=== PATIENT | female | born 1955 | race Two or more races ===

== ENCOUNTER 2023-06-04 12:12 | Inpatient (IN) | payer OTHER ==
[~2023-06-04] VITALS: Ht 157.5 cm; Wt 73.0 kg
[2023-06-04] MEDS ORDERED: CALC667T2 PO (12:46)
[2023-06-04] MEDS ORDERED: HYDR-4077 PO (12:46)
[2023-06-04] MEDS ORDERED: FERR-56 PO (12:46)
[2023-06-04] MEDS ORDERED: PANT40TA49 PO (12:46)
[2023-06-04] MEDS ORDERED: ROSU10TA2 PO (12:46)
[2023-06-04] MEDS ORDERED: LABE100T5 PO (12:46)
[2023-06-04 13:10] LABS: BASOPHILS # (AUTO) 0.1 K/UL (0.0-0.2); BASOPHILS % (AUTO) 1.4 % (0.0-2.0); EOSINOPHILS # (AUTO) 0.1 K/uL (0.0-0.7); EOSINOPHILS % (AUTO) 3.2 % (0.0-7.0); HEMOGLOBIN 11.5 g/dL (10.9-14.3); LYMPHOCYTES % (AUTO) 23.7 % (20.5-51.5); MEAN CORPUSCULAR HEMOGLOBIN 28.6 uug (24.7-32.8); MEAN CORPUSCULAR HGB CONC 34 g/dL (32.3-35.6); MEAN CORPUSCULAR VOLUME 84.5 fL (75.5-95.3); MONOCYTES # (AUTO) 0.4 K/uL (0.1-1.30); MONOCYTES % (AUTO) 9.1 % (0.0-11.0); NEUTROPHILS # (AUTO) 2.7 K/uL (1.8-8.9); NEUTROPHILS % (AUTO) 62.6 % (38.5-71.5); PLATELET COUNT (AUTO) 285 K/uL (179-408); RED BLOOD CELL COUNT(AUTO) 4.02 MIL/uL (3.63-4.92); RED CELL DISTRIBUTION WIDTH 15.5 % (12.3-17.7); WHITE BLOOD COUNT (AUTO) 4.4 K/uL (3.8-11.8)
[2023-06-04 13:23] LABS: CALCIUM 8.3 mg/dL (8.5-10.1); CARBON DIOXIDE 25 mmol/L (21-32); CHLORIDE 93 mmol/L (98-107); GLUCOSE 360 mg/dL (74-106); POTASSIUM 4.5 mmol/L (3.5-5.1); SODIUM SERUM 129 mmol/L (136-145); UREA NITROGEN, BLOOD 34 mg/dL (7-18)
[2023-06-04 13:31] LABS: ALANINE AMINOTRANSFERASE 575 U/L (14-59); ALBUMIN 3.4 g/dL (3.4-5.0); ALKALINE PHOSPHATASE 314 U/L (50-136); ASPARTATE AMINOTRANSFERASE 592 U/L (15-37); BILIRUBIN,DIRECT 0.2 mg/dL (0.0-0.2); BILIRUBIN,TOTAL 0.6 mg/dL (0.2-1.0); TOTAL PROTEIN, SERUM 7.3 g/dL (6.4-8.2)
[2023-06-04 13:36] LABS: DIFFERENTIAL COMMENT 1; THYROID STIMULATING HORMONE 0.745 mIU/mL (0.358-3.740)
[2023-06-04] MEDS ORDERED: IV NS 1000 ML 1,000 ML IV ONE (14:00)
[2023-06-04 14:45] LABS: *BILIRUBIN,URIN NEGATIVE (NEGATIVE); *BLOOD, URINE NEGATIVE (NEGATIVE); *CLARITY,URINE CLEAR (CLEAR); *COLOR,URINE YELLOW (YELLOW); *KETONES,URINE NEGATIVE (NEGATIVE); *PROTEIN,URINE 2+ (NEGATIVE); *UROBILINOGEN,URINE 0.2 E.U./dl (NORMAL); LEUKOCYTE ESTERASE ,URINE TRACE (NEGATIVE); NITRITE, URINE NEGATIVE (NEGATIVE); PH,URINE 7.5 (5.0-8.0)
[2023-06-04 14:47] LABS: UGLUCOSE 2+ (NEGATIVE)
[2023-06-04 15:00] LABS: *AMPHETAMINE, URINE NEGATIVE (NEGATIVE); *BARBITURATE, URINE NEGATIVE (NEGATIVE); *BENZODIAZEPINE, URINE NEGATIVE (NEGATIVE); *CANNABINOID, URINE NEGATIVE (NEGATIVE); *COCCAINE, URINE NEGATIVE (NEGATIVE); *OPIATE, URINE NEGATIVE (NEGATIVE); *PHENCYCLIDINE SCREEN,URINE NEGATIVE (NEGATIVE); FENTANYL, URINE NEGATIVE (NEGATIVE)
[2023-06-04 15:06] LABS: BACTERIA,URINE FEW /HPF (NONE SEEN); RBC,URINE NONE SEEN /HPF (0-3)
[2023-06-04 15:07] LABS: SQUAMOUS EPITHELIAL CELL,UR FEW /HPF (NONE SEEN)
[2023-06-04] MEDS ORDERED: INSULIN REGULAR, HUMAN 300 UNIT/3 ML VIAL IV ONE (16:15)
[2023-06-04] MEDS ORDERED: INSULIN REGULAR, HUMAN 300 UNIT/3 ML VIAL ONE (16:29)
[2023-06-04] MEDS ORDERED: ONDANSETRON 4 MG/2 ML VIAL IV PRN (17:30)
[2023-06-04] MEDS ORDERED: MAGNESIUM HYDROXIDE 30 ML LIQUID UDC PO PRN (17:30)
[2023-06-04] MEDS ORDERED: REMEDY ESSENTIAL ZINC PASTE 113 GM TP PRN (17:30)
[2023-06-04 21:00] VITALS: BP 151/73; TEMP 97.7; O2SAT 99
[2023-06-04] MEDS: ACETAMINOPHEN 325 MG TABLET PO PRN (21:55)
[2023-06-04] MEDS: LABETALOL HCL 100 MG TABLET PO SCH (21:56)
[2023-06-04] MEDS: IV NS 1000 ML 1,000 ML IV PRN (22:25)
[2023-06-05 04:34] VITALS: BP 138/68; TEMP 97.8; O2SAT 95
[2023-06-05] MEDS: PANTOPRAZOLE SODIUM 40 MG TABLET.DR PO SCH (06:30)
[2023-06-05 06:32] LABS: BASOPHILS # (AUTO) 0.1 K/UL (0.0-0.2); EOSINOPHILS # (AUTO) 0.3 K/uL (0.0-0.7); EOSINOPHILS % (AUTO) 6.1 % (0.0-7.0); HEMATOCRIT 33.4 % (31.2-41.9); HEMOGLOBIN 11.3 g/dL (10.9-14.3); LYMPHOCYTES % (AUTO) 36.1 % (20.5-51.5); MEAN CORPUSCULAR HEMOGLOBIN 28.6 uug (24.7-32.8); MEAN CORPUSCULAR HGB CONC 34 g/dL (32.3-35.6); MONOCYTES # (AUTO) 0.5 K/uL (0.1-1.30); MONOCYTES % (AUTO) 9.4 % (0.0-11.0); NEUTROPHILS # (AUTO) 2.7 K/uL (1.8-8.9); NEUTROPHILS % (AUTO) 47.4 % (38.5-71.5); PLATELET COUNT (AUTO) 284 K/uL (179-408); RED BLOOD CELL COUNT(AUTO) 3.93 MIL/uL (3.63-4.92); RED CELL DISTRIBUTION WIDTH 15.8 % (12.3-17.7); WHITE BLOOD COUNT (AUTO) 5.7 K/uL (3.8-11.8)
[2023-06-05 06:49] LABS: DIFFERENTIAL COMMENT 1
[2023-06-05 06:58] LABS: ALBUMIN 3.2 g/dL (3.4-5.0); BILIRUBIN,DIRECT 0.1 mg/dL (0.0-0.2); BILIRUBIN,TOTAL 0.4 mg/dL (0.2-1.0); CALCIUM 7.8 mg/dL (8.5-10.1); CREATININE 1.9 mg/dL (0.6-1.3); MAGNESIUM 2.2 mg/dL (1.8-2.4); PHOSPHOROUS 5.5 mg/dL (2.5-4.9); POTASSIUM 3.4 mmol/L (3.5-5.1)
[2023-06-05] MEDS: CALCIUM ACETATE 667 MG CAP/TAB PO SCH ×3 (09:07→17:26)
[2023-06-05] MEDS: hydrALAZINE HCL 50 MG TABLET PO SCH ×3 (09:25→16:49)
[2023-06-05] MEDS: LABETALOL HCL 100 MG TABLET PO SCH (09:26)
[2023-06-05] MEDS ORDERED: CLONIDINE HCL 0.1 MG TABLET PO PRN (10:00)
[2023-06-05] MEDS ORDERED: NIFEdipine XL 30 MG TABSR PO SCH (10:00)
[2023-06-05] MEDS ORDERED: CALCIUM GLUCONATE IV 2 GM in IV NORMAL SALINE 100 ML IV ONE (11:00)
[2023-06-05] MEDS ORDERED: CALCITRIOL 0.25 MCG CAPSULE PO SCH (11:00)
[2023-06-05] MEDS ORDERED: POTASSIUM CHLORIDE 10 MEQ TAB.PRT.SR PO ONE (11:15)
[2023-06-05 11:18] VITALS: BP 150/59; TEMP 97.7; O2SAT 94
[2023-06-05] MEDS ORDERED: INSU3INS6 SQ (14:46)
[2023-06-05] MEDS ORDERED: LEVO137T2 PO (14:46)
[2023-06-05 15:26] VITALS: BP 154/74; TEMP 97.6; O2SAT 100
[2023-06-05] MEDS: BLOOD SUGAR DIAGNOSTIC 1 EACH STRIP VI SCH ×2 (16:33→20:49)
[2023-06-05] MEDS: INSULIN REGULAR, HUMAN 300 UNIT/3 ML VIAL SQ PRN ×2 (16:47→20:52)
[2023-06-05] MEDS: IV NS 1000 ML 1,000 ML IV PRN (17:16)
[2023-06-05 20:00] VITALS: BP 170/54; TEMP 98.1; O2SAT 98
[2023-06-05 21:30] LABS: *BILIRUBIN,URIN NEGATIVE (NEGATIVE); *BLOOD, URINE NEGATIVE (NEGATIVE); *CLARITY,URINE CLEAR (CLEAR); *COLOR,URINE YELLOW (YELLOW); *KETONES,URINE NEGATIVE (NEGATIVE); *PROTEIN,URINE TRACE (NEGATIVE); *UROBILINOGEN,URINE 0.2 E.U./dl (NORMAL); LEUKOCYTE ESTERASE ,URINE NEGATIVE (NEGATIVE); NITRITE, URINE NEGATIVE (NEGATIVE)
[2023-06-05 21:31] LABS: UGLUCOSE 2+ (NEGATIVE)
[2023-06-05 21:35] LABS: *CREATININE,URINE < 13.0 mg/dL (30-125); *SODIUM RNDM,URINE 84 mmol/L (40-220); *URINE TOTAL PROTEIN RANDOM 21.4 mg/dL (<150/24HR)
[2023-06-06 04:36] VITALS: BP 146/63; TEMP 97.8; O2SAT 99
[2023-06-06] MEDS: PANTOPRAZOLE SODIUM 40 MG TABLET.DR PO SCH (06:11)
[2023-06-06] MEDS: LEVOTHYROXINE SODIUM 137 MCG TABLET PO SCH (06:12)
[2023-06-06] MEDS: IV NS 1000 ML 1,000 ML IV PRN ×2 (06:53→22:49)
[2023-06-06] MEDS: BLOOD SUGAR DIAGNOSTIC 1 EACH STRIP VI SCH ×4 (06:54→20:11)
[2023-06-06 07:16] LABS: BASOPHILS # (AUTO) 0.1 K/UL (0.0-0.2); BASOPHILS % (AUTO) 0.9 % (0.0-2.0); EOSINOPHILS # (AUTO) 0.2 K/uL (0.0-0.7); EOSINOPHILS % (AUTO) 3.1 % (0.0-7.0); HEMATOCRIT 32.1 % (31.2-41.9); HEMOGLOBIN 10.9 g/dL (10.9-14.3); LYMPHOCYTES # (AUTO) 1.4 K/uL (0.8-4.8); LYMPHOCYTES % (AUTO) 19.9 % (20.5-51.5); MEAN CORPUSCULAR HEMOGLOBIN 28.7 uug (24.7-32.8); MEAN CORPUSCULAR HGB CONC 34 g/dL (32.3-35.6); MEAN CORPUSCULAR VOLUME 84.7 fL (75.5-95.3); MONOCYTES # (AUTO) 0.5 K/uL (0.1-1.30); MONOCYTES % (AUTO) 7.3 % (0.0-11.0); NEUTROPHILS # (AUTO) 4.9 K/uL (1.8-8.9); NEUTROPHILS % (AUTO) 68.8 % (38.5-71.5); PLATELET COUNT (AUTO) 279 K/uL (179-408); RED BLOOD CELL COUNT(AUTO) 3.79 MIL/uL (3.63-4.92); RED CELL DISTRIBUTION WIDTH 15.3 % (12.3-17.7); WHITE BLOOD COUNT (AUTO) 7.1 K/uL (3.8-11.8)
[2023-06-06 07:17] LABS: DIFFERENTIAL COMMENT 1
[2023-06-06 07:50] LABS: ALBUMIN 3.3 g/dL (3.4-5.0); BILIRUBIN,TOTAL 0.5 mg/dL (0.2-1.0); CALCIUM 7.9 mg/dL (8.5-10.1); CREATININE 1.7 mg/dL (0.6-1.3); MAGNESIUM 1.9 mg/dL (1.8-2.4); PHOSPHOROUS 5.3 mg/dL (2.5-4.9); POTASSIUM 3.5 mmol/L (3.5-5.1)
[2023-06-06] MEDS: CALCIUM ACETATE 667 MG CAP/TAB PO SCH ×3 (08:53→17:15)
[2023-06-06] MEDS: hydrALAZINE HCL 50 MG TABLET PO SCH ×3 (09:26→16:44)
[2023-06-06 11:15] VITALS: BP 139/64; TEMP 98.4; O2SAT 95
[2023-06-06] MEDS: INSULIN REGULAR, HUMAN 300 UNIT/3 ML VIAL SQ PRN ×3 (12:33→20:13)
[2023-06-06 18:26] VITALS: BP 152/72; TEMP 98.2; O2SAT 96
[2023-06-06 20:00] VITALS: BP 131/72; TEMP 98.1; O2SAT 100
[2023-06-06] MEDS: ACETAMINOPHEN 325 MG TABLET PO PRN (20:14)
[2023-06-06] MEDS: DEXTROSE 50% 50 ML DISP.SYRIN IV PRN (23:41)
[2023-06-07] MEDS: DEXTROSE 50% 50 ML DISP.SYRIN IV PRN ×2 (01:30→05:13)
[2023-06-07 03:06] LABS: HEPATITIS B CORE AB, IgM Negative (Negative); HEPATITIS B SURFACE AG Negative (Negative); HEPATITIS C VIRUS ANTIBODY Non Reactive (Non Reactive)
[2023-06-07 05:42] VITALS: BP 155/79; TEMP 97.6; O2SAT 99
[2023-06-07 06:06] LABS: PTH, INTACT 3 pg/mL (15-65)
[2023-06-07] MEDS: LEVOTHYROXINE SODIUM 137 MCG TABLET PO SCH (06:26)
[2023-06-07] MEDS: PANTOPRAZOLE SODIUM 40 MG TABLET.DR PO SCH (06:26)
[2023-06-07 06:58] LABS: BASOPHILS # (AUTO) 0.1 K/UL (0.0-0.2); EOSINOPHILS # (AUTO) 0.2 K/uL (0.0-0.7); EOSINOPHILS % (AUTO) 2.9 % (0.0-7.0); HEMATOCRIT 33.9 % (31.2-41.9); HEMOGLOBIN 11.6 g/dL (10.9-14.3); LYMPHOCYTES # (AUTO) 2.1 K/uL (0.8-4.8); LYMPHOCYTES % (AUTO) 31.3 % (20.5-51.5); MEAN CORPUSCULAR HGB CONC 34 g/dL (32.3-35.6); MONOCYTES # (AUTO) 0.6 K/uL (0.1-1.30); MONOCYTES % (AUTO) 8.3 % (0.0-11.0); NEUTROPHILS # (AUTO) 3.8 K/uL (1.8-8.9); NEUTROPHILS % (AUTO) 56.5 % (38.5-71.5); PLATELET COUNT (AUTO) 284 K/uL (179-408); RED BLOOD CELL COUNT(AUTO) 3.99 MIL/uL (3.63-4.92); RED CELL DISTRIBUTION WIDTH 15.2 % (12.3-17.7); WHITE BLOOD COUNT (AUTO) 6.7 K/uL (3.8-11.8)
[2023-06-07] MEDS: BLOOD SUGAR DIAGNOSTIC 1 EACH STRIP VI SCH ×3 (07:22→16:38)
[2023-06-07 07:23] LABS: DIFFERENTIAL COMMENT 1
[2023-06-07 07:44] LABS: ALBUMIN 3.3 g/dL (3.4-5.0); BILIRUBIN,DIRECT 0.2 mg/dL (0.0-0.2); BILIRUBIN,TOTAL 0.5 mg/dL (0.2-1.0); CALCIUM 7.4 mg/dL (8.5-10.1); CREATININE 1.6 mg/dL (0.6-1.3); MAGNESIUM 1.6 mg/dL (1.8-2.4); PHOSPHOROUS 4.8 mg/dL (2.5-4.9); POTASSIUM 3.3 mmol/L (3.5-5.1); TOTAL PROTEIN, SERUM 7.1 g/dL (6.4-8.2)
[2023-06-07] MEDS: CALCIUM ACETATE 667 MG CAP/TAB PO SCH ×3 (08:34→17:30)
[2023-06-07] MEDS: hydrALAZINE HCL 50 MG TABLET PO SCH ×3 (08:35→17:30)
[2023-06-07] MEDS: INSULIN REGULAR, HUMAN 300 UNIT/3 ML VIAL SQ PRN ×3 (08:39→16:40)
[2023-06-07] MEDS ORDERED: POTASSIUM CHLORIDE 10 MEQ TAB.PRT.SR PO ONE (11:00)
[2023-06-07] MEDS ORDERED: MAGNESIUM SULFATE/D5W 100 ML IV SCH (11:00)
[2023-06-07 11:01] VITALS: BP 156/80; TEMP 98.4; O2SAT 97
[2023-06-07 12:06] LABS: A/G RATIO 1.1 (0.7-1.7); ALBUMIN 3.3 g/dL (2.9-4.4); ALPHA-1-GLOBULIN 0.2 g/dL (0.0-0.4); ALPHA-2-GLOBULIN 0.8 g/dL (0.4-1.0); BETA GLOBULIN 1.2 g/dL (0.7-1.3); GAMMA GLOBULIN 0.8 g/dL (0.4-1.8); GLOBULIN, TOTAL 3.1 g/dL (2.2-3.9); M-SPIKE Not Observed g/dL (Not Observed)
[2023-06-07] MEDS ORDERED: CEFTRIAXONE 1 G in IV DEXTROSE 5% 50 ML IV ONE (13:00)
[2023-06-07] MEDS ORDERED: POTASSIUM CHLORIDE 20 MEQ TAB.PRT.SR PO ONE (13:00)
[2023-06-07 14:08] VITALS: BP 147/70; TEMP 98; O2SAT 100
[2023-06-07 15:01] VITALS: BP 147/70; TEMP 98.4; O2SAT 99
[2023-06-07 17:30] VITALS: BP 145/85
== END 2023-06-07 17:50 | disposition home or self-care (01) | DRG 469 ==
LOC: ER 12:23 → TELE3 20:21 → MEDSURG3 20:57
PROVIDERS: ADMIT Internal Medicine; ATTEND Internal Medicine
DX: N17.0 Acute kidney failure with tubular necrosis (principal); E44.1 Mild protein-calorie malnutrition; E11.22 Type 2 diabetes mellitus with diabetic chronic kidney disease; E83.39 Other disorders of phosphorus metabolism; K76.0 Fatty (change of) liver, not elsewhere classified; E83.51 Hypocalcemia; E87.1 Hypo-osmolality and hyponatremia; R74.01 Elevation of levels of liver transaminase levels; E78.5 Hyperlipidemia, unspecified; E83.42 Hypomagnesemia; E86.1 Hypovolemia; E87.6 Hypokalemia; N18.9 Chronic kidney disease, unspecified; F41.9 Anxiety disorder, unspecified; M89.8X9 Other specified disorders of bone, unspecified site; Z79.4 Long term (current) use of insulin; Z85.850 Personal history of malignant neoplasm of thyroid; Z90.49 Acquired absence of other specified parts of digestive tract; E86.9 Volume depletion, unspecified; I12.9 Hypertensive chronic kidney disease with stage 1 through stage 4 chronic kidney disease, or unspecified chronic kidney disease; Z68.29 Body mass index [BMI] 29.0-29.9, adult; E89.0 Postprocedural hypothyroidism; E11.65 Type 2 diabetes mellitus with hyperglycemia; N39.0 Urinary tract infection, site not specified; E66.9 Obesity, unspecified; R53.1 Weakness
CPT/HCPCS: 36415; 71045; 74181; 83735; 83970; 84100; 84155; 84165; 84300; 84443; 84484; 85025; 85610; 85730; 86705; 86803; 87340; 93005; A4663; G0378; J0610; J0696; J1815; J3475; J3490; J7040

== ENCOUNTER 2024-01-25 12:11 | Inpatient (IN) | payer OTHER ==
[~2024-01-25] VITALS: Ht 157.5 cm; Wt 69.6 kg
[~2024-01-25 12:11] MED LIST: CALC667T2 PO; HYDR-4077 PO; INSU3INS6 SQ; LABE100T5 PO; LEVO137T2 PO; PANT40TA49 PO; ROSU10TA2 PO
[2024-01-25 12:51] LABS: BASOPHILS # (AUTO) 0.1 K/UL (0.0-0.2); BASOPHILS % (AUTO) 1.3 % (0.0-2.0); EOSINOPHILS # (AUTO) 0.3 K/uL (0.0-0.7); EOSINOPHILS % (AUTO) 6.4 % (0.0-7.0); HEMATOCRIT 32.4 % (31.2-41.9); HEMOGLOBIN 11.4 g/dL (10.9-14.3); LYMPHOCYTES # (AUTO) 1.6 K/uL (0.8-4.8); LYMPHOCYTES % (AUTO) 30.9 % (20.5-51.5); MEAN CORPUSCULAR HEMOGLOBIN 29.9 uug (24.7-32.8); MEAN CORPUSCULAR HGB CONC 35 g/dL (32.3-35.6); MEAN CORPUSCULAR VOLUME 85.2 fL (75.5-95.3); MONOCYTES # (AUTO) 0.4 K/uL (0.1-1.30); MONOCYTES % (AUTO) 8.4 % (0.0-11.0); NEUTROPHILS # (AUTO) 2.7 K/uL (1.8-8.9); PLATELET COUNT (AUTO) 307 K/uL (179-408); RED BLOOD CELL COUNT(AUTO) 3.81 MIL/uL (3.63-4.92)
[2024-01-25 13:02] LABS: DIFFERENTIAL COMMENT 1
[2024-01-25 13:11] LABS: CALCIUM 8.7 mg/dL (8.5-10.1); CARBON DIOXIDE 25 mmol/L (21-32); CHLORIDE 97 mmol/L (98-107); CREATININE 2.2 mg/dL (0.6-1.3); GLUCOSE 139 mg/dL (74-106); POTASSIUM 4.1 mmol/L (3.5-5.1); SODIUM SERUM 134 mmol/L (136-145); UREA NITROGEN, BLOOD 37 mg/dL (7-18)
[2024-01-25 13:20] LABS: ALANINE AMINOTRANSFERASE 585 U/L (14-59); ALBUMIN 3.7 g/dL (3.4-5.0); ALKALINE PHOSPHATASE 351 U/L (50-136); ASPARTATE AMINOTRANSFERASE 406 U/L (15-37); BILIRUBIN,DIRECT 0.2 mg/dL (0.0-0.2); BILIRUBIN,TOTAL 0.8 mg/dL (0.2-1.0); TOTAL PROTEIN, SERUM 7.4 g/dL (6.4-8.2)
[2024-01-25 13:25] LABS: *BILIRUBIN,URIN NEGATIVE (NEGATIVE); *BLOOD, URINE NEGATIVE (NEGATIVE); *CLARITY,URINE CLEAR (CLEAR); *COLOR,URINE YELLOW (YELLOW); *KETONES,URINE NEGATIVE (NEGATIVE); *PROTEIN,URINE 2+ (NEGATIVE); *UROBILINOGEN,URINE 0.2 E.U./dl (NORMAL); LEUKOCYTE ESTERASE ,URINE 1+ (NEGATIVE); NITRITE, URINE NEGATIVE (NEGATIVE); UGLUCOSE NEGATIVE (NEGATIVE)
[2024-01-25] MEDS ORDERED: CEFTRIAXONE /D5W 50ML IVPB **ER PYXIS IV ONE (13:37)
[2024-01-25] MEDS ORDERED: OXYCODONE/APAP 5-325 MG TABLET ONE (13:37)
[2024-01-25] MEDS: IV NS 1000 ML 1,000 ML IV ONE (13:44)
[2024-01-25] MEDS: CEFTRIAXONE 1 G in IV DEXTROSE 5% 50 ML IV ONE (13:44)
[2024-01-25 13:45] LABS: BACTERIA,URINE MODERATE /HPF (NONE SEEN); SQUAMOUS EPITHELIAL CELL,UR MODERATE /HPF (NONE SEEN)
[2024-01-25] MEDS: OXYCODONE/APAP 5-325 MG TABLET PO ONE (13:45)
[2024-01-25] MEDS ORDERED: REMEDY ESSENTIAL ZINC PASTE 113 GM TP PRN (19:00)
[2024-01-25] MEDS ORDERED: ONDANSETRON 4 MG/2 ML VIAL IV PRN (19:00)
[2024-01-25] MEDS ORDERED: DEXTROSE 50% 50 ML DISP.SYRIN IV PRN (19:00)
[2024-01-25 21:30] VITALS: BP 145/49; TEMP 97.9; O2SAT 100
[2024-01-25] MEDS: HEPARIN SODIUM,PORCINE 5,000 UNITS/ML VIAL SQ SCH (21:31)
[2024-01-25] MEDS: BLOOD SUGAR DIAGNOSTIC 1 EACH STRIP VI SCH (21:35)
[2024-01-25] MEDS: INSULIN REGULAR, HUMAN 300 UNIT/3 ML VIAL SQ PRN (21:37)
[2024-01-25] MEDS: ACETAMINOPHEN 325 MG TABLET PO PRN (21:37)
[2024-01-25 22:06] VITALS: BP_SYST 131; BP_SYST 140; BP_SYST 96; BP_DIAS 53; BP_DIAS 65; BP_DIAS 66
[2024-01-26 00:42] VITALS: BP 158/66; TEMP 97.8; O2SAT 98
[2024-01-26 05:19] LABS: BASOPHILS # (AUTO) 0.1 K/UL (0.0-0.2); BASOPHILS % (AUTO) 1.1 % (0.0-2.0); EOSINOPHILS # (AUTO) 0.3 K/uL (0.0-0.7); EOSINOPHILS % (AUTO) 6.1 % (0.0-7.0); HEMATOCRIT 33.6 % (31.2-41.9); HEMOGLOBIN 11.6 g/dL (10.9-14.3); LYMPHOCYTES # (AUTO) 1.9 K/uL (0.8-4.8); LYMPHOCYTES % (AUTO) 35.1 % (20.5-51.5); MEAN CORPUSCULAR HEMOGLOBIN 29.4 uug (24.7-32.8); MEAN CORPUSCULAR HGB CONC 34 g/dL (32.3-35.6); MEAN CORPUSCULAR VOLUME 85.6 fL (75.5-95.3); MONOCYTES # (AUTO) 0.6 K/uL (0.1-1.30); MONOCYTES % (AUTO) 10.7 % (0.0-11.0); NEUTROPHILS # (AUTO) 2.5 K/uL (1.8-8.9); PLATELET COUNT (AUTO) 293 K/uL (179-408); RED BLOOD CELL COUNT(AUTO) 3.93 MIL/uL (3.63-4.92); RED CELL DISTRIBUTION WIDTH 13.9 % (12.3-17.7); WHITE BLOOD COUNT (AUTO) 5.4 K/uL (3.8-11.8)
[2024-01-26 05:34] LABS: DIFFERENTIAL COMMENT 1
[2024-01-26 05:46] LABS: ALBUMIN 3.4 g/dL (3.4-5.0); BILIRUBIN,TOTAL 0.4 mg/dL (0.2-1.0); CALCIUM 7.9 mg/dL (8.5-10.1); TOTAL PROTEIN, SERUM 7.3 g/dL (6.4-8.2)
[2024-01-26 05:55] LABS: THYROID STIMULATING HORMONE 1.251 mIU/mL (0.358-3.740)
[2024-01-26] MEDS: POTASSIUM CHLORIDE 20 MEQ POWDER PACKET GT ONE (08:20)
[2024-01-26 08:30] VITALS: BP 162/80; TEMP 97.9
[2024-01-26] MEDS ORDERED: LABETALOL HCL 100 MG TABLET PO SCH (09:00)
[2024-01-26 10:15] VITALS: BP 106/72
[2024-01-26] MEDS: LEVOTHYROXINE SODIUM 137 MCG TABLET PO SCH (10:32)
[2024-01-26] MEDS ORDERED: CALC0.5C11 PO (11:30)
[2024-01-26] MEDS ORDERED: CHOL-35 PO (11:30)
[2024-01-26] MEDS: CEFTRIAXONE 1 G in IV DEXTROSE 5% 50 ML IV SCH (14:25)
[2024-01-26 15:52] VITALS: BP 148/58; TEMP 97.4
[2024-01-26] MEDS: IV NS 1000 ML 1,000 ML IV PRN (16:36)
[2024-01-26] MEDS: CHOLECALCIFEROL 1,000 UNIT TABLET PO SCH (18:18)
[2024-01-26] MEDS: MIRALAX 17 GM POWD.PACK PO ONE (18:18)
[2024-01-26] MEDS: CALCITRIOL 0.25 MCG CAPSULE PO SCH (18:18)
[2024-01-26 20:00] VITALS: BP 159/59; TEMP 97.5
[2024-01-26] MEDS: hydrALAZINE HCL 25 MG TABLET PO PRN (21:59)
[2024-01-26] MEDS: AMLODIPINE 5 MG TABLET PO SCH (22:24)
[2024-01-27 05:16] LABS: BASOPHILS # (AUTO) 0.1 K/UL (0.0-0.2); EOSINOPHILS # (AUTO) 0.4 K/uL (0.0-0.7); HEMATOCRIT 29.8 % (31.2-41.9); HEMOGLOBIN 10.4 g/dL (10.9-14.3); LYMPHOCYTES # (AUTO) 2.7 K/uL (0.8-4.8); LYMPHOCYTES % (AUTO) 43.5 % (20.5-51.5); MEAN CORPUSCULAR HGB CONC 35 g/dL (32.3-35.6); MEAN CORPUSCULAR VOLUME 86.3 fL (75.5-95.3); MONOCYTES # (AUTO) 0.6 K/uL (0.1-1.30); MONOCYTES % (AUTO) 10.2 % (0.0-11.0); NEUTROPHILS # (AUTO) 2.4 K/uL (1.8-8.9); NEUTROPHILS % (AUTO) 39.3 % (38.5-71.5); PLATELET COUNT (AUTO) 269 K/uL (179-408); RED BLOOD CELL COUNT(AUTO) 3.46 MIL/uL (3.63-4.92); WHITE BLOOD COUNT (AUTO) 6.2 K/uL (3.8-11.8)
[2024-01-27 06:03] LABS: ALBUMIN 3.3 g/dL (3.4-5.0); BILIRUBIN,TOTAL 0.4 mg/dL (0.2-1.0); CALCIUM 7.3 mg/dL (8.5-10.1); CREATININE 1.6 mg/dL (0.6-1.3); MAGNESIUM 1.8 mg/dL (1.8-2.4); PHOSPHOROUS 4.3 mg/dL (2.5-4.9); POTASSIUM 3.4 mmol/L (3.5-5.1); TOTAL PROTEIN, SERUM 6.9 g/dL (6.4-8.2)
[2024-01-27 07:06] LABS: DIFFERENTIAL COMMENT 1
[2024-01-27] MEDS: POTASSIUM CHLORIDE 20 MEQ POWDER PACKET GT ONE (07:15)
[2024-01-27 08:55] VITALS: BP 116/62; TEMP 98; O2SAT 98
[2024-01-27] MEDS: LEVOTHYROXINE SODIUM 137 MCG TABLET PO SCH (09:22)
[2024-01-27] MEDS: POTASSIUM CHLORIDE 20 MEQ TAB.PRT.SR PO ONE (10:38)
[2024-01-27 11:29] VITALS: BP 153/70; TEMP 98.1; O2SAT 96
[2024-01-27 15:46] VITALS: BP 154/75; TEMP 98; O2SAT 99
[2024-01-27] MEDS: CALCIUM ACETATE 667 MG CAP/TAB PO SCH (17:22)
[2024-01-27] MEDS: INSULIN GLARGINE,HUM 300 UNITS/3 ML CARTRIDGE SQ SCH (20:48)
[2024-01-27 21:00] VITALS: BP 135/66; TEMP 98; O2SAT 96
[2024-01-28 00:20] VITALS: BP 151/69; TEMP 98.3; O2SAT 97
[2024-01-28 04:46] VITALS: BP 137/60; TEMP 98.5; O2SAT 95
[2024-01-28] MEDS: PANTOPRAZOLE SODIUM 40 MG TABLET.DR PO SCH (06:02)
[2024-01-28 07:28] LABS: BASOPHILS # (AUTO) 0.1 K/UL (0.0-0.2); EOSINOPHILS # (AUTO) 0.4 K/uL (0.0-0.7); EOSINOPHILS % (AUTO) 5.9 % (0.0-7.0); HEMATOCRIT 30.2 % (31.2-41.9); HEMOGLOBIN 10.5 g/dL (10.9-14.3); LYMPHOCYTES # (AUTO) 2.7 K/uL (0.8-4.8); LYMPHOCYTES % (AUTO) 43.2 % (20.5-51.5); MEAN CORPUSCULAR HEMOGLOBIN 29.9 uug (24.7-32.8); MEAN CORPUSCULAR HGB CONC 35 g/dL (32.3-35.6); MEAN CORPUSCULAR VOLUME 85.7 fL (75.5-95.3); MONOCYTES # (AUTO) 0.6 K/uL (0.1-1.30); MONOCYTES % (AUTO) 10.1 % (0.0-11.0); NEUTROPHILS # (AUTO) 2.5 K/uL (1.8-8.9); NEUTROPHILS % (AUTO) 39.8 % (38.5-71.5); PLATELET COUNT (AUTO) 292 K/uL (179-408); RED BLOOD CELL COUNT(AUTO) 3.52 MIL/uL (3.63-4.92); RED CELL DISTRIBUTION WIDTH 14.2 % (12.3-17.7); WHITE BLOOD COUNT (AUTO) 6.3 K/uL (3.8-11.8)
[2024-01-28 07:34] LABS: DIFFERENTIAL COMMENT 1
[2024-01-28 07:44] LABS: ALBUMIN 3.3 g/dL (3.4-5.0); BILIRUBIN,TOTAL 0.4 mg/dL (0.2-1.0); CREATININE 1.7 mg/dL (0.6-1.3); MAGNESIUM 1.7 mg/dL (1.8-2.4); PHOSPHOROUS 4.3 mg/dL (2.5-4.9); POTASSIUM 3.7 mmol/L (3.5-5.1)
[2024-01-28 07:49] LABS: CALCIUM 7.5 mg/dL (8.5-10.1)
[2024-01-28 08:06] LABS: PTH, INTACT 3 pg/mL (15-65)
[2024-01-28] MEDS: MAGNESIUM OXIDE 400 MG TABLET PO ONE (11:38)
[2024-01-28 11:54] VITALS: BP 145/70; TEMP 98; O2SAT 97
[2024-01-28] MEDS ORDERED: CEPH250C PO (15:52)
[2024-01-28 16:03] VITALS: BP 130/63; TEMP 97.8; O2SAT 99
[2024-01-30 13:23] LABS: A/G RATIO 1.1 (0.7-1.7); ALBUMIN 3.2 g/dL (2.9-4.4); ALPHA-1-GLOBULIN 0.2 g/dL (0.0-0.4); ALPHA-2-GLOBULIN 0.8 g/dL (0.4-1.0); BETA GLOBULIN 1.2 g/dL (0.7-1.3); GAMMA GLOBULIN 0.7 g/dL (0.4-1.8); GLOBULIN, TOTAL 2.9 g/dL (2.2-3.9); M-SPIKE Not Observed g/dL (Not Observed)
== END 2024-01-28 16:45 | disposition home or self-care (01) | DRG 48 ==
LOC: ER 12:11 → TELE3 20:17 → CCU 01-26 03:15 → TELE3 01-27 07:51 → MEDSURG3 01-28 05:03
PROVIDERS: ADMIT Nurse Practitioner Family; ATTEND Internal Medicine
DX: G90.8 Other disorders of autonomic nervous system (principal); N17.0 Acute kidney failure with tubular necrosis; E11.22 Type 2 diabetes mellitus with diabetic chronic kidney disease; M62.82 Rhabdomyolysis; E89.0 Postprocedural hypothyroidism; Z90.49 Acquired absence of other specified parts of digestive tract; Z85.850 Personal history of malignant neoplasm of thyroid; E11.65 Type 2 diabetes mellitus with hyperglycemia; N18.32 Chronic kidney disease, stage 3b; E86.0 Dehydration; I12.9 Hypertensive chronic kidney disease with stage 1 through stage 4 chronic kidney disease, or unspecified chronic kidney disease; E66.9 Obesity, unspecified; E78.5 Hyperlipidemia, unspecified; N39.0 Urinary tract infection, site not specified; Z68.28 Body mass index [BMI] 28.0-28.9, adult; Z79.4 Long term (current) use of insulin; M89.8X9 Other specified disorders of bone, unspecified site; E87.6 Hypokalemia
CPT/HCPCS: 36415; 71045; 72100; 76770; 83605; 83690; 83735; 83970; 84100; 84155; 84165; 84443; 84484; 85025; 86803; 93005; 93307; A4663; G0378; J0696; J1644; J1815; J7040